=== PATIENT | male | born 1965 | race Two or more races ===

== ENCOUNTER 2019-09-25 19:27 | Emergency (ER) | payer MEDICAID ==
[~2019-09-25] VITALS: Ht 182.9 cm; Wt 90.0 kg
[2019-09-25] MEDS ORDERED: MORPHINE SULFATE 4 MG/ML CPJ (NOT FOR IM USE) IV STA (20:21)
[2019-09-25] MEDS ORDERED: SODIUM CHLORIDE 0.9% 1,000 ML IV ONE (20:21)
[2019-09-25] MEDS ORDERED: ONDANSETRON HCL 4MG/2ML INJ IV STA (20:21)
[2019-09-25] MEDS ORDERED: AZITHROMYCIN 500 MG TABLET PO ONE (20:30)
[2019-09-25] MEDS ORDERED: CEFTRIAXONE 1 G PREMIX 50 ML IV ONE (20:30)
[2019-09-25 20:55] LABS: HEMATOCRIT. 39.2 % (42.0-52.0); HEMOGLOBIN. 13.5 g/dL (14.0-18.0); MEAN CORPUSCULAR HEMOGLOBIN 30.9 pg (28.0-32.0); MEAN CORPUSCULAR VOLUME 89.5 fL (80.0-94.0); MEAN PLATELET VOLUME 6.4 fl (7.4-10.4); PLATELET 401 x1000/uL (130-400); RED BLOOD CELL COUNT 4.38 mill/uL (4.7-6.1); RED CELL DISTRIBUTION WIDTH 13.5 % (11.6-14.6)
[2019-09-25 21:03] LABS: PROTHROMBIN TIME 10.1 sec (9.6-11.0)
[2019-09-25 21:20] LABS: CHLORIDE 104 mEq/L (98-107)
[2019-09-25] MEDS ORDERED: IOHEXOL-300 100 ML BOTTLE ONE (22:03)
[2019-09-25 22:59] LABS: PLATELET ESTIMATE SLIGHTLY INCREASED
[2019-09-25] MEDS ORDERED: HYDROCODONE/ACETAMINOPHEN 5/325MG TABLET PO ONE (23:30)
[2019-09-25] MEDS ORDERED: ONDANSETRON HCL 4MG/2ML INJ IV ONE (23:30)
[2019-09-26 09:30] VITALS: BP 119/80
== END 2019-09-26 11:03 | disposition home or self-care (01) ==
LOC: ER 19:27
DX: N45.1 Epididymitis (principal); Z59.0 Homelessness; Z98.890 Other specified postprocedural states; Z75.1 Person awaiting admission to adequate facility elsewhere
CPT/HCPCS: 36415; 74177; 76870; 80053; 83690; 85025; 85610; 93976; 96365; 96375; 96376; 99285; J0696; J2270; J2405; J7030; Q9967

== ENCOUNTER 2021-04-19 09:19 | Emergency (ER) | payer MEDICAID ==
[~2021-04-19] VITALS: Ht 167.6 cm; Wt 69.0 kg
[2021-04-19] MEDS ORDERED: ACETAMINOPHEN 325MG TABLET PO ONE (10:00)
[2021-04-19] MEDS ORDERED: TETANUS, DIPHTHERIA, PERTUSSIS VAC/PF 0.5ML (>10YR OLD) IM ONE (10:00)
[2021-04-19] MEDS ORDERED: BACITRACIN/POLYMYXIN B SULFATE OINT 15GM TOP ONE (11:45)
[2021-04-19] MEDS ORDERED: CEPH500C2 MT (11:57)
[2021-04-19] MEDS ORDERED: NAPR-1176 MT (11:57)
[2021-04-19] MEDS ORDERED: BACITRACIN ZINC OINT UDPKT TOP SCH (12:00)
[2021-04-19 12:48] VITALS: BP 161/95
== END 2021-04-19 12:50 | disposition home or self-care (01) ==
LOC: ER 09:19
DX: S61.211A Laceration without foreign body of left index finger without damage to nail, initial encounter (principal); W45.8XXA Other foreign body or object entering through skin, initial encounter; Y93.89 Activity, other specified; Y92.89 Other specified places as the place of occurrence of the external cause; Y99.8 Other external cause status
CPT/HCPCS: 73130; 99283